=== PATIENT | male | born 2000 | race African-American/Black ===

== ENCOUNTER 2023-07-07 21:43 | Emergency (ER) | payer MEDICAID, OTHER ==
[~2023-07-07] VITALS: Ht 177.8 cm; Wt 82.0 kg
[2023-07-07 21:53] VITALS: BP 127/84; PULSE 98; RESP 20; TEMP 98.3; O2SAT 99
== END 2023-07-08 01:25 | disposition left against medical advice (07) ==
LOC: ER 21:43
DX: F41.9 Anxiety disorder, unspecified (principal); Z53.21 Procedure and treatment not carried out due to patient leaving prior to being seen by health care provider
CPT/HCPCS: 99281